=== PATIENT | female | born 1980 | race Caucasian/White ===

== ENCOUNTER 2018-09-20 14:40 | Emergency (ER) | payer OTHER ==
[~2018-09-20] VITALS: Ht 170.2 cm; Wt 72.6 kg
[2018-09-20 14:40] VITALS: BP_SYST 135
--- NOTE | 2018-09-20 14:40 | NUR ---
BROUGHT IN BY [facility], PLACED IN BED #8 AND TRIAGED. REPORT GIVEN TO ADAM
--- NOTE | 2018-09-20 14:48 | NUR ---
Patient to ER bed 08 to gown for evaluation. Side rails up.
--- NOTE | 2018-09-20 15:05 | NUR ---
Patient to ER via EMT ambulance for evaluation of back pain, patient reports that her initial injury occured on 08/16/18 and that she is on worker's comp. Patient requesing an MRI of her back. Patient is awake, alert and oriented in no acute distress, vital signs stable, respirations even and unlabored, skin warm and dry to touch. Patient reports that she is unable to ambulate/stand due to the pain. Awaiting evaluation by ER MD/HUMAN RESOURCES VICE PRESIDENT, will continue to observe and assess.
--- NOTE | 2018-09-20 15:05 | NUR ---
Note nusratone in EDM - 09/20/18 at 2005 by DEANGELO Patient to ER via triage for evaluation of back pain, patient reports that initial injury was on 08/16, and that she is on workers comp. Patient is awake, alert and oriented in no acute distress, vital signs stable, respirations even and unlabored, skin warm and dry to touch. Awaiting evaluation by ER MD/TAX ADVISOR, will continue to observe and assess.
--- NOTE | 2018-09-20 15:10 | NUR ---
Dahiana Barber CORPORATE TRAVEL EXPERT at bedside to evaluate patient.
[2018-09-20] MEDS ORDERED: fentaNYL CITRATE/PF 100 MCG/2 ML AMP IM ONE (15:15)
[2018-09-20] MEDS ORDERED: CYCLOBENZAPRINE HCL 10 MG TABLET (FLEXERIL) PO ONE (15:15)
[2018-09-20] MEDS ORDERED: ONDANSETRON 4 MG ODT TAB PO ONE (15:15)
--- NOTE | 2018-09-20 16:10 | NUR ---
Patient resting quietly in no acute distress, awaiting dispo.
[2018-09-20] MEDS ORDERED: DEXAMETHASONE SOD PHOSPHATE 10 MG/ML VIAL IM ONE (16:30)
[2018-09-20] MEDS ORDERED: HYDROcodone/ACETAMIN 10-325 MG TAB PO ONE (16:30)
--- NOTE | 2018-09-20 17:00 | NUR ---
Patient reports unable to stand due to pain, awaiting dispo.
[2018-09-20] MEDS ORDERED: KETOROLAC TROMETHAMINE 60 MG/2 ML VIAL IM ONE (18:00)
--- NOTE | 2018-09-20 18:00 | NUR ---
Assessment remains unchanged, awaiting dispo.
--- NOTE | 2018-09-20 19:00 | NUR ---
Dahiana Barber at bedside speaking with patient/family regarding results and plan of care.
--- NOTE | 2018-09-20 19:35 | NUR ---
Patient up ambulating to bathroom with slow, steady gait using crutches. Patient OK for discharge per Dahiana.
[2018-09-20 19:50] VITALS: BP_SYST 128
--- NOTE | 2018-09-20 19:50 | NUR ---
Patient given written and verbal discharge instructions and verbalizes understanding. ER BIOLOGY TUTOR discussed with patient the results and treatment provided. Patient in stable condition. ID arm band removed. Rx of Prednisone, [place], Motrin, Flexeril given. Patient educated on pain management and to follow up with PMD. Pain Scale 4. Opportunity for questions provided and answered. Medication side effect fact sheet provided. Prior to discharge, patient was requesting a Flexeril RX, Dahiana Nuñez BIOLOGY TUTOR notified of patient's request and will provide for patient before discharge. Patient able to ambulate without difficulty using crutches. Patient brought to private car via wheelchair. Patient able to get into car without assistance. No trauma/injury when patient was getting into car.
== END 2018-09-20 19:50 | disposition home or self-care (01) ==
LOC: SED 14:40
DX: M54.16 Radiculopathy, lumbar region (principal); R03.0 Elevated blood-pressure reading, without diagnosis of hypertension
CPT/HCPCS: 81025; 96372; 99284; J1100; J1885; J3010; Q0162